=== PATIENT | female | born 1995 | race Caucasian/White ===

== ENCOUNTER 2018-03-25 10:31 | Outpatient (CLI) | payer OTHER ==
[~2018-03-25 10:31] MED LIST: CEFTIN500 MG PO; KETO10TA2 PO; PENICILLIN V P500 MG PO; PHENAGIL TABLE1 EACH PO; TYLOPHEN500 MG PO
[2018-03-26] MEDS ORDERED: PRENATAL TABLE1 EAC1 PO (17:57)
== END 2018-03-25 13:18 | disposition home or self-care (01) ==
LOC: OBS/DEL 10:31 → LDR 13:18 → OBS/DEL 03-26 17:22 → LDR 03-26 17:22
DX: O26.893 Other specified pregnancy related conditions, third trimester (principal); K21.9 Gastro-esophageal reflux disease without esophagitis; K29.60 Other gastritis without bleeding; Z34.03 Encounter for supervision of normal first pregnancy, third trimester

== ENCOUNTER 2018-03-26 17:31 | Inpatient (IN) | payer OTHER ==
[~2018-03-26] VITALS: Ht 162.6 cm; Wt 98.0 kg
[2018-03-26] MEDS ORDERED: PRENATAL TABLE1 EAC1 PO (17:57)
== END 2018-03-29 12:00 | DRG 833 ==
LOC: LDR 17:31 → OB/GYN 03-27 09:52
PROVIDERS: ADMIT Specialist
PROC: BT43ZZZ Ultrasonography of Bilateral Kidneys (ICD-10-PCS; principal; 2018-03-26)
PROC: 4A1HXCZ Monitoring of Products of Conception, Cardiac Rate, External Approach (ICD-10-PCS; 2018-03-26)
DX: O26.892 Other specified pregnancy related conditions, second trimester (principal); K21.9 Gastro-esophageal reflux disease without esophagitis; K29.60 Other gastritis without bleeding; J32.8 Other chronic sinusitis; Z34.02 Encounter for supervision of normal first pregnancy, second trimester
CPT/HCPCS: 240

== ENCOUNTER 2018-06-11 16:09 | Outpatient (CLI) | payer OTHER ==
[~2018-06-11 16:09] MED LIST changes: +PRENATAL TABLE1 EAC1 PO
[2018-06-11] MEDS ORDERED: PROBIOTIC1 EAC2 PO (16:38)
[2018-06-11] MEDS ORDERED: CALCIUM500 M1 PO (16:38)
[2018-06-11] MEDS ORDERED: IRON236 MG PO (16:39)
== END 2018-06-11 16:49 | disposition home or self-care (01) ==
LOC: OBS/DEL 16:09
DX: O26.893 Other specified pregnancy related conditions, third trimester (principal); Z34.03 Encounter for supervision of normal first pregnancy, third trimester; N89.8 Other specified noninflammatory disorders of vagina

== ENCOUNTER 2018-06-28 21:23 | Outpatient (CLI) | payer OTHER ==
[~2018-06-28 21:23] MED LIST changes: +CALCIUM500 M1 PO; +IRON236 MG PO; +PROBIOTIC1 EAC2 PO
== END 2018-06-29 10:26 | disposition home or self-care (01) ==
LOC: OBS/DEL 21:23
DX: O26.893 Other specified pregnancy related conditions, third trimester (principal); N89.8 Other specified noninflammatory disorders of vagina; Z34.03 Encounter for supervision of normal first pregnancy, third trimester

== ENCOUNTER 2018-07-06 14:27 | Inpatient (IN) | payer OTHER ==
[~2018-07-06] VITALS: Ht 162.6 cm; Wt 3.2 kg
== END 2018-07-19 10:55 | DRG 788 ==
LOC: OB/GYN 07-15 14:30 → LDR 07-16 05:45 → O/R 07-16 17:52 → OB/GYN 07-16 18:00
PROVIDERS: ADMIT Specialist
PROC: 4A0HXFZ Measurement of Products of Conception, Cardiac Rhythm, External Approach (ICD-10-PCS; 2018-07-16)
PROC: 10D00Z1 Extraction of Products of Conception, Low, Open Approach (ICD-10-PCS; principal; 2018-07-16 16:30)
DX: O82 Encounter for cesarean delivery without indication (principal); O13.4 Gestational [pregnancy-induced] hypertension without significant proteinuria, complicating childbirth; O76 Abnormality in fetal heart rate and rhythm complicating labor and delivery; Z3A.40 40 weeks gestation of pregnancy; Z37.0 Single live birth